=== PATIENT | male | born 1970 | race African-American/Black ===

== ENCOUNTER 2017-02-14 22:56 | Emergency (ER) | payer OTHER ==
[~2017-02-14] VITALS: Ht 177.8 cm; Wt 81.0 kg
[2017-02-14] MEDS ORDERED: LIDOCAINE HCL 1%/EPI 1:200,000 30 ML VIAL MC ONE (23:30)
[2017-02-15 02:15] VITALS: BP 154/84
[2017-02-15] MEDS ORDERED: OXYCODONE HCL/ACETAMINOPHEN 5/325MG TABLET PO ONE (02:15)
== END 2017-02-15 02:45 | disposition home or self-care (01) ==
LOC: ER 23:28
DX: S01.01XA Laceration without foreign body of scalp, initial encounter (principal); K21.9 Gastro-esophageal reflux disease without esophagitis; W22.09XA Striking against other stationary object, initial encounter; Y93.55 Activity, bike riding; Y92.488 Other paved roadways as the place of occurrence of the external cause
CPT/HCPCS: 12004; 70450; 73030; 99284; X7700; Z7610